=== PATIENT | male | born 1940 | race Caucasian/White ===

== ENCOUNTER 2019-02-21 11:44 | Observation (INO) | payer MEDICARE, OTHER ==
--- NOTE | 2019-02-21 12:15 | ED Physician Documentation ---
PD HPI CHEST PAIN - Stated complaint Stated Complaint: CHEST PX - Chief complaint Chief Complaint: Cardiac - History obtained from History obtained from: Patient - History of Present Illness Timing - onset: Last night (Chest ache starting last night about 8pm. Tried 2 ntg at home with brief relief. More pressure/stabbing today, mor achy last night. Mild dyspnea.) Location: Substernal Radiation: Other (none) - Additional information Additional information: Multiple stents, most recent Spring 2015. Review of Systems Ten Systems: 10 systems reviewed and negative Constitutional: reports: Reviewed and negative Cardiac: reports: Chest pain / pressure. denies: Palpitations, Pedal edema Respiratory: reports: Dyspnea. denies: Cough GI: denies: Abdominal Pain, Nausea, Vomiting PD PAST MEDICAL HISTORY - Past Medical History Cardiovascular: Hypertension, High cholesterol Respiratory: Shortness of breath GI: GERD HEENT: Chronic vision loss, Chronic hearing loss - Past Surgical History Past Surgical History: Yes General: Cholecystectomy, Bowel surgery, Hiatal hernia repair, Splenectomy Ortho: Rotator cuff repair, Arthroscopic surgery Cardiovascular: Pacemaker HEENT: Tracheostomy - Present Medications Home Medications: Ambulatory Orders Medication Instructions Recorded Confirmed Acyclovir [Zovirax] 200 mg PO DAILY 07/30/15 02/21/19 Alfuzosin HCl [Alfuzosin HCl ER] 10 mg DAILY 07/30/15 02/21/19 Carvedilol [Coreg] 6.25 mg PO BID 07/30/15 07/30/15 Clopidogrel [Plavix] 75 mg PO DAILY 07/30/15 02/21/19 Omeprazole [Prilosec] 20 mg PO BIDAC 07/30/15 02/21/19 RX: Atorvastatin [Lipitor] 10 mg PO Q2D@2100 07/30/15 02/21/19 Aspirin [Aspirin EC] 81 mg PO DAILY 07/31/15 02/21/19 Nitroglycerin [Nitrostat] 0.4 mg PO Q15M PRN 07/31/15 02/21/19 Nifedipine [Nifedipine ER] 60 mg PO QPM 02/21/19 02/21/19 - Allergies Allergies/Adverse Reactions: Allergies Allergy/AdvReac Type Severity Reaction Status Date / Time No Known Drug Allergies Allergy Verified 02/21/19 11:52 - Social History Does the pt smoke?: No Smoking Status: Former smoker Does the pt drink ETOH?: Yes Does the pt have substance abuse?: No - Family History Family history: reports: Non contributory - Immunizations Immunizations are current?: Yes - POLST Patient has POLST: No PD ED PE NORMAL - Vitals Vital signs reviewed: Yes - General General: Alert and oriented X 3, No acute distress - HEENT HEENT: PERRL, EOMI, Pharynx benign - Neck Neck: Supple, no meningeal sign, No bony TTP - Cardiac Cardiac: RRR, No murmur - Respiratory Respiratory: No respiratory distress, Clear bilaterally - Abdomen Abdomen: Normal bowel sounds, Soft, Non tender - Back Back: No CVA TTP, No spinal TTP - Derm Derm: Normal color, Warm and dry - Extremities Extremities: No calf tenderness / cord, Other (mild BLE edema, symmetric baseline per him.) - Neuro Neuro: Alert and oriented X 3, Normal speech Results - Vitals Vitals: Vital Signs - 24 hr 02/21/19 02/21/19 11:49 12:08 Temperature 36 C L Heart Rate 72 60 Respiratory 22 18 Rate Blood Pressure 190/69 H 159/53 H O2 Saturation 95 98 Oxygen O2 Source Room air - EKG (time done) 1150 Rate: Rate (enter#) (65) Rhythm: Paced (A-V dual paced.) - Labs Labs: Laboratory Tests 02/21/19 02/21/19 02/21/19 12:07 12:07 12:07 WBC 5.6 RBC 4.18 L Hgb 13.1 L Hct 39.0 L MCV 93.3 MCH 31.2 H MCHC 33.5 RDW 14.2 Plt Count 324 MPV 8.5 Neut # (Auto) 3.1 Lymph # (Auto) 1.0 L Dade # (Auto) 1.3 H Eos # (Auto) 0.1 Baso # (Auto) 0.1 Absolute Nucleated RBC 0.00 Nucleated RBC % 0.1 Sodium 137 Potassium 4.1 Chloride 105 Carbon Dioxide 23 Anion Gap 9.0 BUN 23 H Creatinine 1.1 Estimated GFR (MDRD) 64 L Glucose 211 H Calcium 9.0 Total Bilirubin 0.8 AST 24 ALT 22 Alkaline Phosphatase 54 Troponin I < 0.04 Total Protein 7.1 Albumin 4.0 Globulin 3.1 Albumin/Globulin Ratio 1.3 Lipase 34 PD MEDICAL DECISION MAKING - ED course ED course: 78-year-old gentleman with somewhat typical and somewhat atypical chest pain waxing and waning since last night with multiple risk factors for and known history of coronary disease. Initial biomarkers and EKG were reassuring but given his underlying high risk will be placed in observation. Spoke with Dr Silva for this. Departure - Departure Disposition: ED Place in Observation Clinical Impression: Chest pain Condition: Good Record reviewed to determine appropriate education?: Yes Discharge Date/Time: 02/21/19 13:44
[2019-02-21] MEDS ORDERED: ASPIRIN CHEW 81 MG TABLET PO STA (12:18)
[2019-02-21 12:19] LABS: BASOPHILS # (AUTO) 0.1 10^3/uL (0.0-0.1); BASOPHILS % (AUTO) 1.1 %; EOSINOPHILS # (AUTO) 0.1 10^3/uL (0.0-0.7); EOSINOPHILS % (AUTO) 1.2 %; HGB - HEMOGLOBIN 13.1 g/dL (14.0-18.0); LYMPHOCYTES % (AUTO) 18.4 %; MEAN CORPUSCULAR HEMOGLOBIN 31.2 pg (27.0-31.0); MEAN CORPUSCULAR HGB CONC 33.5 g/dL (32.0-36.0); MEAN CORPUSCULAR VOLUME 93.3 fL (80.0-94.0); MEAN PLATELET VOLUME 8.5 fL (7.4-11.4); MONOCYTES # (AUTO) 1.3 10^3/uL (0.0-1.0); NEUTROPHILS # (AUTO) 3.1 10^3/uL (1.5-6.6); NEUTROPHILS % (AUTO) 56.3 %; PLT - PLATELET COUNT 324 10^3/uL (130-450); RED BLOOD COUNT 4.18 10^6/uL (4.70-6.10); RED CELL DISTRIBUTION WIDTH 14.2 % (12.0-15.0); WHITE BLOOD COUNT 5.6 x10^3/uL (4.8-10.8)
[2019-02-21] MEDS ORDERED: NITROGLYCERIN 2% PASTE TOP STA (12:19)
[2019-02-21 12:30] LABS: ALBUMIN/GLOBULIN RATIO 1.3 (1.0-2.2); BILIRUBIN,TOTAL 0.8 mg/dL (0.2-1.0); CREATININE 1.1 mg/dL (0.6-1.2); TOTAL PROTEIN 7.1 g/dL (6.7-8.2)
--- NOTE | 2019-02-21 12:51 | XRAY Report ---
Reason: chest pain Procedure Date: 02/21/2019 Accession Number: [id number] / [id number] Procedure: XR - Chest 1 View X-Ray CPT Code: 76479 FULL RESULT: EXAM: CHEST RADIOGRAPHY EXAM DATE: 02/21/2019 12:42 PM. CLINICAL HISTORY: Chest pain. COMPARISON: CHEST 2 VIEW PA/LAT 07/30/2015 11:09 AM. TECHNIQUE: 1 view. FINDINGS: Lungs/Pleura: No focal opacities evident. No pleural effusion. No pneumothorax. Mediastinum: Borderline heart size. Mediastinal, hilar contours unremarkable. Other: Cardiac pacing device and leads appear grossly intact. IMPRESSION: No convincing acute cardiopulmonary abnormality. RADIA
[2019-02-21] MEDS ORDERED: oxyCODONE 5 MG TABLET PO PRN (12:55)
[2019-02-21] MEDS ORDERED: ONDANSETRON ODT 4 MG TABLET TL PRN (12:55)
[2019-02-21] MEDS ORDERED: ONDANSETRON 4 MG/2 ML VIAL IVP PRN (12:55)
[2019-02-21] MEDS ORDERED: ACETAMINOPHEN 325 MG TABLET PO PRN (12:55)
[2019-02-21] MEDS ORDERED: SODIUM CHLORIDE FLUSH 0.9% 10 ML SYRINGE IVP PRN (12:55)
[2019-02-21] MEDS ORDERED: NITROGLYCERIN SL 0.4 MG TABLET SL PRN (12:57)
[2019-02-21] MEDS ORDERED: PANTOPRAZOLE 40 MG TABLET PO SCH (13:00)
[2019-02-21] MEDS ORDERED: CLOPIDOGREL 75 MG TABLET PO SCH (13:00)
[2019-02-21] MEDS ORDERED: SODIUM CHLORIDE FLUSH 0.9% 10 ML SYRINGE IVP SCH (17:00)
--- NOTE | 2019-02-21 17:46 | HISTORY & PHYSICAL EXAMINATION ---
Chief Complaint - Chief Complaint Chief Complaint: atypical chest pain for >24 hours Chest Pain Admission HPI - Admitted From Admitted from: ED - History Obtained From Records Reviewed: RN notes reviewed, Other ([facility]) History obtained from: Patient Exam limitations: No limitations - History of Present Illness Pain/Problem Location Description: Pain is substernal, going up to right side of chest. A dull pressure-like Severity at the worst: reports: Mild Pain Quality: reports: Dull Context-Pain started w/: reports: Rest Timing: reports: Gradual onset, Constant Duration: reports: Days: (1) Improved with: reports: Other (mildly relieved by SL NTG in ER) Worsened by: reports: Nothing Associated symptoms: denies: Shortness of air, Diaphoresis, Nausea, Vomiting, Feeling faint / dizzy, General Weakness, Palpitations HPI Comment/Other: This gentleman has had multiple stents put in his coronary arteries. He is usual chest pain is that of a burning squeezing pain in the substernal area that goes to the back of his throat. This is resulted in a cardiology intervention with stents over 3 episodes. He thinks he has 5 stents overall. This time, the chest pain is lower in his chest, more to the right side. It is more dull and a pressure. No burning. There is no pain in his throat as he usually does. But he did start having a postnasal drip with a tickle in his throat and he did not know if he should be worried about it or not.He has a long history of concerns for low-grade throat pain, chest tightness and hoarseness for years. This ended up in a hiatal hernia repair. Was seen by ear nose and throat September 2011 for this. Negative EGD and pH probe in 2008. Known esophageal spasm. Had another repeat EGD in September 2011. Barium esophagram done as well. No demonstrated reflux on the esophagram with evidence of esophageal dysmotility that has delayed and decreased esophageal peristalsis. He presented with another episode of chest pain in April 2012. Stress test was positive. He underwent a coronary angiogram April 19, 2012. Drug-eluting stent placed in the "jailed" diagonal branch, was then "rescued" with a kissing balloon angioplasty. Continue to have more chest pain so a nuclear stress test was done and normal. More chest pain January 2013 with retrosternal chest pain radiating to the back of his throat and shortness of breath. Was hospitalized and underwent a percutaneous coronary intervention on February 18, 2013 and underwent a coronary angiogram. 60-70% stenosis of the distal left main/ostial LAD, 50% ostial stenosis of the jailed major diagonal branch, and 70% stenosis at the ostium of the inferior limb of the diagonal. Underwent drug-eluting stent of the distal left main, ostial circumflex, and ostial proximal LAD as well as mid LAD. Discharged home. Return 2 days later with repeat angiography which revealed patent stents. Underwent intervention of a 70% diagonal stenosis with balloon angioplasty at that time. PMH/PSH - Past Medical History Cardiovascular: positive: Hypertension (Renal arteries visualized for renal cell mass follow-up September 2014 and renal arteries are open), High cholesterol, Coronary artery disease (With history of [address] Rojas, [facility] cardiology in [place]), Peripheral Vascular Disease (Mild. ABIs on the right 1.15, on left 1.17 July 2007), Arrhythmia (With dual paced chamber pacer placed 2014) Respiratory: positive: Shortness of breath Neuro: positive: None Endocrine/Autoimmune: positive: None GI: positive: GERD, Other (Diarrhea with dehydration and hospitalization July 2014 after he went hunting and skinning a deer. Resulted in presyncope.) : positive: Benign prostate hypertrophy, Other (Fall while hunting and slipping on snow August 2014 resulting in left renal subcapsular hematoma.Found to have incidental right renal cyst at that time. 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 Small hiatus hernia present. Medeiros 48-hour pH done subsequent and had a completely normal 48-hour reflux study.), Other (Umbilical hernia repair) Ortho: positive: Rotator cuff repair, Arthroscopic surgery Cardiovascular: positive: Coronary stent (Including LAD), Pacemaker HEENT: positive: Tonsil/Adenoidectomy, Tracheostomy Social & Family Hx - Living Situation Living Arrangement: At home Living Situation: Alone, Other ( in October 2014) - Social History Does the pt smoke?: No Smoking Status: Former smoker (Quit in 1987) Does the pt drink ETOH?: Yes ETOH Use: Beer Does the pt have substance abuse?: No - POLST Patient has POLST: No POLST Status: Full Code - Family History Family History Comment/Other: Father in his 70s from an [place] Mother of lung cancer 3 sons and 1 daughter. Daughter has diabetes and is "not healthy" Meds/Allgy - Home Medications Home Medications: Ambulatory Orders Medication Instructions Recorded Confirmed Acyclovir [Zovirax] 200 mg PO DAILY 07/30/15 02/21/19 Alfuzosin HCl [Alfuzosin HCl ER] 10 mg DAILY 07/30/15 02/21/19 Atorvastatin [Lipitor] 10 mg PO Q2D@2100 07/30/15 02/21/19 Carvedilol [Coreg] 6.25 mg PO BID 07/30/15 07/30/15 Clopidogrel [Plavix] 75 mg PO DAILY 07/30/15 02/21/19 Omeprazole [Prilosec] 20 mg PO BIDAC 07/30/15 02/21/19 Aspirin [Aspirin EC] 81 mg PO DAILY 07/31/15 02/21/19 Nitroglycerin [Nitrostat] 0.4 mg PO Q15M PRN 07/31/15 02/21/19 Nifedipine [Nifedipine ER] 60 mg PO QPM 02/21/19 02/21/19 - Allergies Allergies/Adverse Reactions: Allergies Allergy/AdvReac Type Severity Reaction Status Date / Time No Known Drug Allergies Allergy Verified 02/21/19 11:52 Review of Systems - Constitutional Constitutional: denies: Fatigue, Fever, Chills, Malaise - Eyes Eyes: denies: Pain, Irritation, Amaurosis, Blurred vision, Field loss - Ears, Nose & Throat Ears, Nose & Throat: reports: Hearing loss, Hearing aids, Vertigo, Postnasal drainage, Sore throat. denies: Ear pain, Tinnitus, Nasal pain, Nasal discharge - Cardiovascular Cariovascular: denies: Irregular heart rate, Palpitations, Chest pain, Edema, Syncope, Exertional dyspnea, Decr. exercise tolerance - Respiratory Respiratory: denies: Cough, Sputum production, Wheezing, Snoring, SOB at rest - Gastrointestinal Gastrointestinal: denies: Abdominal pain, Abdominal distention, Constipation, Diarrhea, Change in bowel habits, Rectal bleeding - Genitourinary Genitourinary: reports: Incontinence, Nocturia. denies: Dysuria, Frequency, Urgency, Hematuria, Flank pain, Urethral discharge - Musculoskeletal Musculoskeletal: reports: Muscle pain, Back pain. denies: Muscle aches, Stiffness, Gout, Joint pain - Integumentary Integumentary: denies: Rash, Pruritis, Lesions, Dryness - Neurological Neurological: denies: General weakness, Focal weakness, Headache, Dizziness, Memory problems, Pre-existing deficit - Psychiatric Psychiatric: denies: Depression, Anxiety, Suicidal - Endocrine Endocrine: denies: Polyuria, Polydypsia, Polyphagia - Hematologic/Lymphatic Hematologic/Lymphatic: reports: Bruising. denies: Anemia, Petechiae Prior Level of Functionality: Independent with activities of daily living. Lives alone. Does his own bills, drives, gets help from his daughter to help clean the house. Does not use any durable medical Equipment. Exam - Vital Signs Reviewed Vital Signs: Yes Vital Signs: Vital Signs x48h Temp Pulse Pulse Resp BP BP Pulse Ox 02/21/19 16:00 36.4 C L 62 18 132/75 H 98 02/21/19 14:14 36.1 C L 55 L 18 157/72 H 97 02/21/19 13:42 36.8 C 63 16 156/80 H 96 02/21/19 12:08 60 18 159/53 H 98 02/21/19 11:49 36 C L 72 22 190/69 H 95 - Physical Exam General Appearance: positive: No acute distress, Alert, Other (Bilateral hearing aids in place, mildly deaf gentleman, alert very cheerful. This is in contrast to his daughter who looks pale, fatigued and is in tears with anxiety over her dad) Eyes Bilateral: positive: PERRL, EOMI ENT: positive: Pharynx nml Neck: positive: No JVD, Carotid bruit. negative: Stiff neck Respiratory: positive: Chest non-tender. negative: Wheezes, Rales, Rhonchi Cardiovascular: positive: Regular rate & rhythm, Bradycardia, Systolic murmur. negative: Gallop/S4, Friction rub Peripheral Pulses: positive: 1+ Abdomen: positive: Non-tender, No organomegaly, Nml bowel sounds, No distention Skin: positive: Warm, Dry Extremities: positive: Full ROM, No pedal edema. negative: Calf tenderness Neurologic/Psychiatric: positive: Oriented x3, CN's nml (2-12), Motor nml. negative: Facial droop, Slurred/abnml speech Results - Lab Results Fish Bones: 02/21/19 12:07 02/21/19 12:07 Other Lab Results: Lab Results x24hrs 02/21/19 02/21/19 02/21/19 Range/Units 12:07 12:07 12:07 WBC 5.6 (4.8-10.8) x10^3/uL RBC 4.18 L (4.70-6.10) 10^6/uL Hgb 13.1 L (14.0-18.0) g/dL Hct 39.0 L (42.0-52.0) % MCV 93.3 (80.0-94.0) fL MCH 31.2 H (27.0-31.0) pg MCHC 33.5 (32.0-36.0) g/dL RDW 14.2 (12.0-15.0) % Plt Count 324 (130-450) 10^3/uL MPV 8.5 (7.4-11.4) fL Neut # (Auto) 3.1 (1.5-6.6) 10^3/uL Lymph # (Auto) 1.0 L (1.5-3.5) 10^3/uL Colbert # (Auto) 1.3 H (0.0-1.0) 10^3/uL Eos # (Auto) 0.1 (0.0-0.7) 10^3/uL Baso # (Auto) 0.1 (0.0-0.1) 10^3/uL Absolute Nucleated RBC 0.00 x10^3/uL Nucleated RBC % 0.1 /100WBC Sodium 137 (135-145) mmol/L Potassium 4.1 (3.5-5.0) mmol/L Chloride 105 (101-111) mmol/L Carbon Dioxide 23 (21-32) mmol/L Anion Gap 9.0 (6-13) BUN 23 H (6-20) mg/dL Creatinine 1.1 (0.6-1.2) mg/dL Estimated GFR (MDRD) 64 L (>89) Glucose 211 H (70-100) mg/dL Calcium 9.0 (8.5-10.3) mg/dL Total Bilirubin 0.8 (0.2-1.0) mg/dL AST 24 (10-42) IU/L ALT 22 (10-60) IU/L Alkaline Phosphatase 54 (42-121) IU/L Troponin I < 0.04 (<0.49) ng/mL Total Protein 7.1 (6.7-8.2) g/dL Albumin 4.0 (3.2-5.5) g/dL Globulin 3.1 (2.1-4.2) g/dL Albumin/Globulin Ratio 1.3 (1.0-2.2) Lipase 34 (22-51) U/L - Diagnostic Imaging Results Diagnostic Imaging Results: positive: Final report reviewed Diagnostic Imaging Results Comments: No focal opacities. Cardiac pacing device and leads appear grossly intact. - EKG Results EKG Interpreted Independently: No EKG Comparison: positive: Unchanged from prior EKG EKG Findings: AV dual paced rhythm with some inhibition. No further analysis attempted. CP/CHF Plan - Echo Plan to order an echo?: No - Plan Patient Problems: All Active Problems Chest pain (Acute) Accelerating angina (Acute) Plan: With this gentleman has documented coronary artery disease with several interventions. His present presentation of chest pain is atypical for his usual presentation of angina. Nevertheless it did respond to subungual nitroglycerin. EKG is uninterpretable with regards to ischemia. First set of troponins is negative. Plan is to do serial troponins. Patient would like to be discharged tonight. I have spoken to his cardiology group. I have made the smoke eater on-call aware that the patient is being seen. He is amenable to serial troponins, sending the patient home, and they will see him in follow-up to do a stress test if needed. They would like to see him first before they do anything. His other problems of: hypertension, benign prostatic hypertrophy, gastroesophageal reflux disease appears stable at this time. I will reorder his usual home meds. Transfer Core Measures - Anticipated LOS I expect patient to be DC'd or transferred within 96 hours.: Yes - DVT/VTE - Prophylaxis VTE/DVT Device ordered at admit?: Yes
--- NOTE | 2019-02-21 19:09 | Discharge Plan ---
Discharge Plan Disposition: 01 Home, Self Care Condition: Good Diet: Cardiac Activity Restrictions: Activity as Tolerated Shower Restrictions: No Driving Restrictions: No Additional Instructions or Follow Up instructions: You were admitted for observation of chest pain. You have a very significant history of sterile coronary artery stents. You also have a history of reflux disease, hiatal hernia repair, chest burning resulting in EGD, Medeiros studies, etc. At this time we checked your heart muscle for enzyme leakage, call troponin. Your troponins have been negative. I have already spoken to your cardiology office. Dr. Rojas was not there today but his partner was. They know you have been here today and will be seeing you in the office in the next few days for a consultation. They will decide if you need a stress test or not. In the meantime you do not did not need to take any new medicines No Smoking: If you smoke, Please STOP! Call for help. Follow-up with: Michael Aguilar MD [Primary Care Provider] -
[2019-02-21] MEDS ORDERED: NIFEdipine ER 30 MG TABLET PO SCH (21:00)
[2019-02-21] MEDS ORDERED: TAMSULOSIN 0.4 MG CAPSULE PO SCH (21:00)
[2019-02-21] MEDS ORDERED: CARVEDILOL 6.25 MG PO SCH (21:00)
[2019-02-21 22:48] VITALS: BP 140/70
[2019-02-22] MEDS ORDERED: ASPIRIN EC 81 MG TABLET PO SCH (09:00)
[2019-02-22] MEDS ORDERED: POLYETHYLENE GLYCOL 3350 17 GM PACKET PO SCH (09:00)
[2019-02-22] MEDS ORDERED: ATORVASTATIN 10 MG TABLET PO SCH (21:00)
--- NOTE | 2019-03-07 05:07 | DISCHARGE SUMMARY ---
Physician: Robyn Silva MD DATE OF ADMISSION: 02/21/2019 DATE OF DISCHARGE: 02/21/2019 DISCHARGE DIAGNOSES 1. Atypical chest pain. 2. History of coronary artery disease. 3. Hypertension. 4. Benign prostatic hypertrophy. 5. Gastroesophageal reflux disease. DISCHARGE MEDICATIONS: No change. 1. Zovirax 200 mg daily. 2. Azulfidine extended release 10 mg daily. 3. Aspirin 81 mg daily. 4. Lipitor 10 mg every 2 days. 5. Plavix 75 mg daily. 6. Nifedipine extended release 60 mg daily. 7. Nitroglycerin 0.4 mg p.r.n. chest pain. 8. Prilosec 20 mg p.o. b.i.d. PRINCIPAL PROCEDURES: Serial cardiac enzymes that were all negative. HOSPITAL COURSE: Please refer to the detailed history and physical. He is an 78-year-old man who orellana s had several cardiac interventions with regard to stents. He also has atypical chest pain from post nasal drip, constant clearing of throat with sore throat, as well as gastroesophageal reflux disease. He has been worked up by ENT, as well as GI: He presents with another episode of chest pain. He d oes not want to stay overnight. Serial cardiac enzymes were negative. I have spoken to his cardiolo gy service, and they feel they can see the patient for followup in the office. They do not want to n ecessarily schedule a treadmill test yet. They will want to see him in the office first before they decide. As such, the patient was discharged in stable condition. Serial cardiac enzymes negative with negati ve EKG. PHYSICAL EXAMINATION: VITAL SIGNS: At discharge that evening, temperature was 36.6, pulse 60, blood pressure 140/70, respi rations 18, 97% on room air. GENERAL: Lanky talkative man who looks older than his stated age, without carotid bruits. HEART: I rregular rate and rhythm. ABDOMEN: A benign abdominal exam and no ataxia, edema, orthopnea. TD: 03/06/2019 20:36
== END 2019-02-21 22:56 | disposition home or self-care (01) ==
LOC: ED 11:44 → MS2 12:55
PROVIDERS: ADMIT Specialist; ATTEND Specialist
DX: R07.89 Other chest pain (principal); I25.10 Atherosclerotic heart disease of native coronary artery without angina pectoris; Z95.5 Presence of coronary angioplasty implant and graft; N40.0 Benign prostatic hyperplasia without lower urinary tract symptoms; K21.9 Gastro-esophageal reflux disease without esophagitis; Z95.0 Presence of cardiac pacemaker; Z87.891 Personal history of nicotine dependence; I73.9 Peripheral vascular disease, unspecified; R09.82 Postnasal drip; E78.00 Pure hypercholesterolemia, unspecified
CPT/HCPCS: 36415; 71045; 80053; 83690; 84484; 85025; 93005; 99284; A9270; G0378

== ENCOUNTER 2019-05-09 08:00 | Outpatient (CLI) | payer MEDICARE, OTHER ==
[2019-05-09 12:33] LABS: BASOPHILS % (AUTO) 0.6 %; EOSINOPHILS # (AUTO) 0.1 10^3/uL (0.0-0.7); HGB - HEMOGLOBIN 12.7 g/dL (14.0-18.0); LYMPHOCYTES # (AUTO) 1.3 10^3/uL (1.5-3.5); LYMPHOCYTES % (AUTO) 26.3 %; MEAN CORPUSCULAR HEMOGLOBIN 30.9 pg (27.0-31.0); MEAN CORPUSCULAR HGB CONC 31.9 g/dL (32.0-36.0); MEAN CORPUSCULAR VOLUME 96.8 fL (80.0-94.0); MEAN PLATELET VOLUME 10.9 fL (7.4-11.4); MONOCYTES # (AUTO) 1.1 10^3/uL (0.0-1.0); MONOCYTES % (AUTO) 22.4 %; NEUTROPHILS # (AUTO) 2.4 10^3/uL (1.5-6.6); NEUTROPHILS % (AUTO) 48.7 %; PLT - PLATELET COUNT 343 10^3/uL (130-450); RED BLOOD COUNT 4.11 10^6/uL (4.70-6.10); RED CELL DISTRIBUTION WIDTH 14.6 % (12.0-15.0)
[2019-05-09 13:16] LABS: ALBUMIN 3.7 g/dL (3.2-5.5); ALBUMIN/GLOBULIN RATIO 1.2 (1.0-2.2); ALKALINE PHOSPHATASE 55 IU/L (42-121); ALT ALANINE AMINOTRANSFERASE 19 IU/L (10-60); AST ASPARTATE AMINOTRANSFERASE 19 IU/L (10-42); BILIRUBIN,TOTAL 0.8 mg/dL (0.2-1.0); BUN - BLOOD UREA NITROGEN 20 mg/dL (6-20); CALCIUM 8.8 mg/dL (8.5-10.3); CARBON DIOXIDE - CO2 24 mmol/L (21-32); CHLORIDE 109 mmol/L (101-111); CHOL/HDL RATIO 3.4 (<5.0); CHOLESTEROL 186 mg/dL; CREATININE 1.1 mg/dL (0.6-1.2); GFR - MDRD 64 (>89); GLUCOSE 128 mg/dL (70-100); HDL CHOLESTEROL 54 mg/dL; LDL CHOLESTEROL,CALCULATED 121 mg/dL; LDL/HDL RATIO 2.2 (<3.6); SODIUM 140 mmol/L (135-145); TOTAL PROTEIN 6.8 g/dL (6.7-8.2); VLDL CHOLESTEROL 11 mg/dL
== END 2019-05-09 23:59 | disposition home or self-care (01) ==
LOC: LAB.WCP 08:00
PROVIDERS: ATTEND Family Medicine
DX: D64.9 Anemia, unspecified (principal); E78.5 Hyperlipidemia, unspecified; I10 Essential (primary) hypertension
CPT/HCPCS: 36415; 80053; 80061; 83721; 84443; 85025

== ENCOUNTER 2019-05-16 11:36 | Outpatient (CLI) | payer MEDICARE, OTHER ==
[2019-05-16 19:10] LABS: MAGNESIUM 2.3 mg/dL (1.7-2.8)
[2019-05-16 19:39] LABS: HB2 TOTAL 12.7 g/dL; HEMOGLOBIN A1C 0.52 g/dL; HEMOGLOBIN A1C % 5.9 % (4.6-6.2)
== END 2019-05-16 11:37 | disposition home or self-care (01) ==
LOC: LAB.WCP 11:36
PROVIDERS: ATTEND Family Medicine
DX: M60.9 Myositis, unspecified (principal); R73.9 Hyperglycemia, unspecified
CPT/HCPCS: 36415; 82550; 83036; 83735

== ENCOUNTER → 2019-08-04 | Outpatient (CLI) | payer MEDICARE, OTHER ==
[2019-08-04 13:02] LABS: BASOPHILS % (AUTO) 0.8 %; EOSINOPHILS # (AUTO) 0.1 10^3/uL (0.0-0.7); EOSINOPHILS % (AUTO) 1.8 %; LYMPHOCYTES # (AUTO) 1.3 10^3/uL (1.5-3.5); LYMPHOCYTES % (AUTO) 25.9 %; MEAN CORPUSCULAR HEMOGLOBIN 31.9 pg (27.0-31.0); MEAN CORPUSCULAR HGB CONC 31.9 g/dL (32.0-36.0); MEAN CORPUSCULAR VOLUME 99.8 fL (80.0-94.0); MEAN PLATELET VOLUME 11.3 fL (7.4-11.4); MONOCYTES # (AUTO) 1.1 10^3/uL (0.0-1.0); MONOCYTES % (AUTO) 21.8 %; NEUTROPHILS # (AUTO) 2.5 10^3/uL (1.5-6.6); NEUTROPHILS % (AUTO) 49.5 %; PLT - PLATELET COUNT 307 10^3/uL (130-450); RED BLOOD COUNT 4.08 10^6/uL (4.70-6.10); RED CELL DISTRIBUTION WIDTH 14.8 % (12.0-15.0); WHITE BLOOD COUNT 5.1 x10^3/uL (4.8-10.8)
[2019-08-04 13:04] LABS: CREATININE 1.1 mg/dL (0.6-1.2)
== END ==
LOC: LAB.WCP 07:58
PROVIDERS: ATTEND Internal Medicine Cardiovascular Disease
DX: I25.10 Atherosclerotic heart disease of native coronary artery without angina pectoris (principal); I48.0 Paroxysmal atrial fibrillation
CPT/HCPCS: 36415; 80048; 85025

== ENCOUNTER 2020-07-25 08:14 | Outpatient (CLI) | payer MEDICARE, OTHER ==
[2020-07-25 11:55] LABS: BASOPHILS % (AUTO) 0.9 %; EOSINOPHILS # (AUTO) 0.2 10^3/uL (0.0-0.7); EOSINOPHILS % (AUTO) 4.3 %; LYMPHOCYTES # (AUTO) 1.1 10^3/uL (1.5-3.5); LYMPHOCYTES % (AUTO) 25.1 %; MEAN CORPUSCULAR HEMOGLOBIN 31.9 pg (27.0-31.0); MEAN CORPUSCULAR HGB CONC 31.9 g/dL (32.0-36.0); MEAN PLATELET VOLUME 11.2 fL (7.4-11.4); MONOCYTES # (AUTO) 1.1 10^3/uL (0.0-1.0); MONOCYTES % (AUTO) 25.5 %; PLT - PLATELET COUNT 304 10^3/uL (130-450); RED BLOOD COUNT 4.08 10^6/uL (4.70-6.10); RED CELL DISTRIBUTION WIDTH 14.2 % (12.0-15.0); WHITE BLOOD COUNT 4.4 x10^3/uL (4.8-10.8)
[2020-07-25 12:19] LABS: ALBUMIN 3.7 g/dL (3.2-5.5); ALBUMIN/GLOBULIN RATIO 1.2 (1.0-2.2); ALKALINE PHOSPHATASE 57 IU/L (42-121); ALT ALANINE AMINOTRANSFERASE 20 IU/L (10-60); AST ASPARTATE AMINOTRANSFERASE 19 IU/L (10-42); BILIRUBIN,TOTAL 0.6 mg/dL (0.2-1.0); BUN - BLOOD UREA NITROGEN 14 mg/dL (6-20); CARBON DIOXIDE - CO2 30 mmol/L (21-32); CHLORIDE 108 mmol/L (101-111); CHOL/HDL RATIO 2.9 (<5.0); CHOLESTEROL 149 mg/dL; CREATININE 1.1 mg/dL (0.6-1.2); GLUCOSE 120 mg/dL (70-100); HDL CHOLESTEROL 52 mg/dL; LDL CHOLESTEROL,CALCULATED 85 mg/dL; LDL/HDL RATIO 1.6 (<3.6); SODIUM 142 mmol/L (135-145); TOTAL PROTEIN 6.7 g/dL (6.7-8.2); VLDL CHOLESTEROL 12 mg/dL
[2020-07-25 13:16] LABS: FREE T4 (FREE THYROXINE) 0.84 ng/dL (0.58-1.64)
== END 2020-07-25 23:59 | disposition home or self-care (01) ==
LOC: LAB.WCP 08:14
PROVIDERS: ATTEND Family Medicine
DX: I10 Essential (primary) hypertension (principal); E78.5 Hyperlipidemia, unspecified; I25.10 Atherosclerotic heart disease of native coronary artery without angina pectoris
CPT/HCPCS: 36415; 80053; 80061; 83721; 84439; 84443; 85025

== ENCOUNTER 2020-09-25 08:48 | Outpatient (CLI) | payer MEDICARE, OTHER | END 2020-09-25 08:49 | disposition home or self-care (01) | LOC: LAB.N 08:48 | PROVIDERS: ATTEND Nurse Practitioner | DX: I48.91 Unspecified atrial fibrillation (principal); Z79.899 Other long term (current) drug therapy | CPT/HCPCS: 36415; 84443 ==

== ENCOUNTER 2021-06-06 08:00 | Outpatient (CLI) | payer MEDICARE, OTHER ==
[2021-06-06 12:19] LABS: BASOPHILS % (AUTO) 0.6 %; EOSINOPHILS # (AUTO) 0.1 10^3/uL (0.0-0.7); EOSINOPHILS % (AUTO) 1.4 %; HCT - HEMATOCRIT 38.9 % (42.0-52.0); HGB - HEMOGLOBIN 12.3 g/dL (14.0-18.0); LYMPHOCYTES % (AUTO) 19.2 %; MEAN CORPUSCULAR HEMOGLOBIN 31.3 pg (27.0-31.0); MEAN CORPUSCULAR HGB CONC 31.6 g/dL (32.0-36.0); MEAN PLATELET VOLUME 11.3 fL (7.4-11.4); NEUTROPHILS # (AUTO) 2.9 10^3/uL (1.5-6.6); NEUTROPHILS % (AUTO) 58.6 %; PLT - PLATELET COUNT 309 10^3/uL (130-450); RED BLOOD COUNT 3.93 10^6/uL (4.70-6.10); RED CELL DISTRIBUTION WIDTH 14.2 % (12.0-15.0)
[2021-06-06 13:00] LABS: FERRITIN 307.3 ng/mL (23.9-336.2)
[2021-06-06 13:04] LABS: ESTIMATED AVERAGE GLUCOSE 128 mg/dL (70-100); HEMOGLOBIN A1c% 6.1 % (4.27-6.07)
[2021-06-06 13:42] LABS: ALT ALANINE AMINOTRANSFERASE 18 IU/L (10-60); AST ASPARTATE AMINOTRANSFERASE 21 IU/L (10-42); BUN - BLOOD UREA NITROGEN 20 mg/dL (6-20); CALCIUM 8.9 mg/dL (8.5-10.3); CARBON DIOXIDE - CO2 24 mmol/L (21-32); CHLORIDE 103 mmol/L (101-111); CREATININE 1.1 mg/dL (0.6-1.2); GFR - MDRD 64 (>89); GLUCOSE 161 mg/dL (70-100); POTASSIUM 4.5 mmol/L (3.5-5.0); SODIUM 136 mmol/L (135-145)
[2021-06-06 14:29] LABS: % IRON SATURATION 33 % (20-50); ALBUMIN 3.7 g/dL (3.2-5.5); ALBUMIN/GLOBULIN RATIO 1.2 (1.0-2.2); ALKALINE PHOSPHATASE 48 IU/L (42-121); BILIRUBIN,TOTAL 0.6 mg/dL (0.2-1.0); CHOLESTEROL 145 mg/dL; HDL CHOLESTEROL 48 mg/dL; IRON 82 ug/dL (45-182); LDL CHOLESTEROL,CALCULATED 83 mg/dL; LDL/HDL RATIO 1.7 (<3.6); TOTAL IRON BINDING CAPACITY 252 ug/dL (250-450); TOTAL PROTEIN 6.8 g/dL (6.7-8.2); TRANSFERRIN 180 mg/dL (180-329); TRIGLYCERIDES 71 mg/dL; VLDL CHOLESTEROL 14 mg/dL
== END 2021-06-06 23:59 | disposition home or self-care (01) ==
LOC: LAB.WCP 08:00
PROVIDERS: ATTEND Family Medicine
DX: D64.9 Anemia, unspecified (principal); E78.5 Hyperlipidemia, unspecified; R73.9 Hyperglycemia, unspecified; Z12.5 Encounter for screening for malignant neoplasm of prostate
CPT/HCPCS: 36415; 80053; 80061; 82607; 82728; 83036; 83540; 84466; 85025; G0103; 83721; 84153

== ENCOUNTER 2021-09-02 10:30 | Emergency (ER) | payer MEDICARE, OTHER ==
[2021-09-02 11:54] LABS: BASOPHILS % (AUTO) 0.3 %; EOSINOPHILS % (AUTO) 0.2 %; HCT - HEMATOCRIT 39.9 % (42.0-52.0); HGB - HEMOGLOBIN 13.1 g/dL (14.0-18.0); LYMPHOCYTES % (AUTO) 18.3 %; MEAN CORPUSCULAR HEMOGLOBIN 31.7 pg (27.0-31.0); MEAN CORPUSCULAR HGB CONC 32.8 g/dL (32.0-36.0); MEAN CORPUSCULAR VOLUME 96.6 fL (80.0-94.0); MEAN PLATELET VOLUME 9.9 fL (7.4-11.4); MONOCYTES % (AUTO) 28.8 %; NEUTROPHILS % (AUTO) 52.1 %; PLT - PLATELET COUNT 274 10^3/uL (130-450); RED BLOOD COUNT 4.13 10^6/uL (4.70-6.10); RED CELL DISTRIBUTION WIDTH 14.6 % (12.0-15.0); WHITE BLOOD COUNT 6.1 x10^3/uL (4.8-10.8)
[2021-09-02 12:03] LABS: ALBUMIN 3.6 g/dL (3.2-5.5); ALBUMIN/GLOBULIN RATIO 1.2 (1.0-2.2); BILIRUBIN,TOTAL 0.6 mg/dL (0.2-1.0); CALCIUM 8.4 mg/dL (8.5-10.3); CREATININE 1.3 mg/dL (0.6-1.2); POTASSIUM 4.3 mmol/L (3.5-5.0); TOTAL PROTEIN 6.7 g/dL (6.7-8.2)
[2021-09-02 12:09] LABS: RAPID STREP SCREEN Negative (Negative)
[2021-09-02 12:14] LABS: ABNORMAL LYMPHS % (MANUAL) 0 %; BAND NEUTROPHILS % (MANUAL) 0 %
[2021-09-02 12:24] LABS: DIFFERENTIAL COMMENT MANUAL DIFFERENTIAL; LYMPHOCYTES # (MANUAL) 0.7 10^3/uL (1.5-3.5); LYMPHOCYTES % (MANUAL) 12 %; MONOCYTES # (MANUAL) 1.7 10^3/uL (0.0-1.0); NEUTROPHILS # (MANUAL) 3.7 10^3/uL (1.5-6.6); PLATELET ESTIMATE, MANUAL NORMAL (130-450,000) (NORMAL); PLATELET MORPHOLOGY NORMAL APPEARANCE (NORMAL); RBC MORPHOLOGY (MULTIPLE) NORMAL APPEARANCE (NORMAL); WBC MORPHOLOGY (MULTIPLE) 1+ TOXIC GRANULATION (NORMAL)
--- NOTE | 2021-09-02 12:27 | XRAY Report ---
PROCEDURE: Chest 1 View X-Ray INDICATIONS: soa TECHNIQUE: One view of the chest was acquired. COMPARISON: 07/30/2015 and 02/21/2019 FINDINGS: Surgical changes and devices: Left chest wall cardiac pacer. Lungs and pleura: No pleural effusions or pneumothorax. Lungs are clear. Mediastinum: Mediastinal contours appear normal. Heart size is normal. Bones and chest wall: No suspicious bony lesions. Overlying soft tissues appear unremarkable. IMPRESSION: No acute cardiopulmonary disease process. Reviewed by: Kelly Delvalle MD, PhD on 09/02/2021 11:26 AM BAILEY Approved by: Kelly Delvalle MD, PhD on 09/02/2021 11:26 AM [employer]CHE[employer] Station ID: [id number]
[2021-09-02 13:02] LABS: B. PARAPERTUSSIS- RESP PCR PAN NOT DETECTED; B. PERTUSSIS- RESP PCR PANEL NOT DETECTED; C. PNEUMONIAE- RESP PCR PANEL NOT DETECTED; CORONAVIRUS 229E-RESP PCR NOT DETECTED; CORONAVIRUS HKU1-RESP PCR NOT DETECTED; CORONAVIRUS NL63-RESP PCR NOT DETECTED; CORONAVIRUS OC43-RESP PCR NOT DETECTED; HUMAN METAPNEUMOVIRUS NOT DETECTED; INFLUENZA A- RESP PCR PANEL NOT DETECTED; INFLUENZA B - RESP PCR PANEL NOT DETECTED; M. PNEUMONIAE- RESP PCR PANEL NOT DETECTED; PARAINFLUENZA VIRUS 1 NOT DETECTED; PARAINFLUENZA VIRUS 2 NOT DETECTED; PARAINFLUENZA VIRUS 3 NOT DETECTED; PARAINFLUENZA VIRUS 4 NOT DETECTED; RHINOVIRUS/ENTEROVIRUS NOT DETECTED; RSV- RESP PCR PANEL NOT DETECTED; SARS-CoV-2 -RESP PCR PANEL DETECTED
[2021-09-02] MEDS ORDERED: CASIRIVIMAB/IMDEVIMAB 10 ML in SODIUM CHLORIDE 0.9% 50 ML IV ONE (14:00)
--- NOTE | 2021-09-02 14:12 | ED Physician Documentation ---
PD HPI URI - Stated complaint Stated Complaint: LOC/FEVER/SOA - Chief complaint Chief Complaint: Neuro - History obtained from History obtained from: Patient - History of Present Illness Timing - onset: How many days ago (33) Timing duration: Days Timing details: Gradual onset, Still present Associated symptoms: Fever, Nasal congestion, Rhinorrhea, Sore throat, Dry cough, Dyspnea Contributing factors: Sick contact (daughter and son in law with cough) Improves by: Rest Worsened by: Activity Similar symptoms before: Has not had sx before Recently seen: Not recently seen - Additional information Additional information: Previously well 81-year-old male back from a month-long camping trip hunting in [facility] has developed a fever sore throat and cough and he passed out in the shower 2 days ago and was incontinent of stool at the time. He states that he has since recovered continues to have some symptoms of sore throat and lymph node swelling. He has been vaccinated against Covid had his last shot in December of this year. He does believe that his son-in-law and his daughter both coughing as well. Review of Systems Constitutional: reports: Fever, Chills, Myalgias, Fatigue, Sweats Eyes: denies: Decreased vision Ears: denies: Ear pain Nose: reports: Rhinorrhea / runny nose, Congestion Throat: reports: Sore throat Cardiac: denies: Chest pain / pressure, Palpitations Respiratory: reports: Dyspnea, Cough GI: denies: Vomiting : denies: Dysuria, Frequency PD PAST MEDICAL HISTORY - Past Medical History Past Medical History: Yes Cardiovascular: Hypertension, High cholesterol, Coronary artery disease, Periphe ral Vascular Disease, Arrhythmia Respiratory: Shortness of breath Neuro: None Endocrine/Autoimmune: None GI: GERD, Other : Benign prostate hypertrophy, Other HEENT: Chronic vision loss, Chronic hearing loss Psych: None Musculoskeletal: Osteoarthritis, Chronic back pain Derm: Psoriasis - Past Surgical History Past Surgical History: Yes General: Cholecystectomy, Bowel surgery, Hiatal hernia repair, Splenectomy, EGD, Other Ortho: Rotator cuff repair, Arthroscopic surgery Cardiovascular: Coronary stent, Pacemaker HEENT: Tonsil/Adenoidectomy, Tracheostomy - Present Medications Home Medications: Ambulatory Orders Medication Instructions Recorded Confirmed Acyclovir [Zovirax] 200 mg PO DAILY 07/30/15 09/02/21 Alfuzosin HCl [Alfuzosin HCl ER] 10 mg ORAL DAILY 07/30/15 09/02/21 Omeprazole [Prilosec] 20 mg PO BIDAC 07/30/15 09/02/21 Aspirin [Aspirin EC] 81 mg PO DAILY 07/31/15 09/02/21 Nitroglycerin [Nitrostat] 0.4 mg PO Q15M PRN 07/31/15 09/02/21 NIFEdipine [Nifedipine ER] 60 mg PO QPM 02/21/19 09/02/21 Apixaban [Eliquis] 5 mg ORAL BID 09/02/21 09/02/21 Azithromycin [Zithromax] 250 mg PO DAILY #6 tablet 09/02/21 Pravastatin [Pravachol] 20 mg PO DAILY PM 09/02/21 09/02/21 Sotalol [Betapace] 80 mg PO BID 09/02/21 09/02/21 dexAMETHasone [Decadron] 4 mg PO DAILY #5 tablet 09/02/21 - Allergies Allergies/Adverse Reactions: Allergies Allergy/AdvReac Type Severity Reaction Status Date / Time No Known Drug Allergies Allergy Verified 09/02/21 10:49 - Social History Does the pt smoke?: No Smoking Status: Former smoker Does the pt drink ETOH?: Yes Does the pt have substance abuse?: No - Immunizations Immunizations are current?: Yes - POLST Patient has POLST: No POLST Status: Full Code PD ED PE NORMAL - Vitals Vital signs reviewed: Yes (normal ) - General General: Alert and oriented X 3, No acute distress, Well developed/nourished - HEENT HEENT: Atraumatic, PERRL, EOMI, Ears normal, Other (mild erythema to the posterior pharynx) - Neck Neck: Supple, no meningeal sign, No bony TTP - Cardiac Cardiac: RRR, No murmur - Respiratory Respiratory: No respiratory distress, Clear bilaterally - Abdomen Abdomen: Normal bowel sounds, Soft, Non tender, Non distended, No organomegaly - Back Back: No CVA TTP, No spinal TTP - Derm Derm: Normal color, Warm and dry, No rash - Extremities Extremities: No deformity, No edema - Neuro Neuro: Alert and oriented X 3, automatic hemmer 2-12 intact, No motor deficit, No sensory deficit, Normal speech Eye Opening: Spontaneous Motor: Obeys Commands Verbal: Oriented GCS Score: 15 - Psych Psych: Normal mood, Normal affect Results - Vitals Vitals: Vital Signs - 24 hr 09/02/21 09/02/21 09/02/21 10:51 11:24 13:00 Temperature 37 C Heart Rate 65 60 68 Respiratory 24 17 18 Rate Blood Pressure 103/57 L 124/70 139/76 H O2 Saturation 96 96 98 Oxygen O2 Source Room air - Labs Labs: Laboratory Tests 09/02/21 09/02/21 09/02/21 11:35 11:35 11:35 WBC 6.1 RBC 4.13 L Hgb 13.1 L Hct 39.9 L MCV 96.6 H MCH 31.7 H MCHC 32.8 RDW 14.6 Plt Count 274 MPV 9.9 Neut # (Auto) Not Reportable Lymph # (Auto) Not Reportable Highlands # (Auto) Not Reportable Eos # (Auto) Not Reportable Baso # (Auto) Not Reportable Absolute Nucleated RBC Not Reportable Total Counted 100 Band Neuts % (Manual) 0 Abnorm Lymph % (Manual) 0 Nucleated RBC % Not Reportable Neutrophils # (Manual) 3.7 Lymphocytes # (Manual) 0.7 L Monocytes # (Manual) 1.7 H Eosinophils # (Manual) 0.0 Basophils # (Manual) 0.0 Differential Comment MANUAL DIFFERENTIAL WBC Morphology 1+ TOXIC GRANULATION Platelet Estimate NORMAL (130-450,000) Platelet Morphology NORMAL APPEARANCE RBC Morph Micro Appear NORMAL APPEARANCE Sodium 136 Potassium 4.3 Chloride 101 Carbon Dioxide 26 Anion Gap 9.0 BUN 13 Creatinine 1.3 H Estimated GFR (MDRD) 53 L Glucose 126 H Lactic Acid Calcium 8.4 L Total Bilirubin 0.6 AST 22 ALT 24 Alkaline Phosphatase 44 Total Protein 6.7 Albumin 3.6 Globulin 3.1 Albumin/Globulin Ratio 1.2 Lipase 38 Nasal Adenovirus (PCR) Nasal B. parapertussis DNA (PCR) Nasal Coronavir 229E PCR Nasal Coronavir HKU1 PCR Nasal Coronavir NL63 PCR Nasal Coronavir OC43 PCR Nasal Enterovir/Rhinovir PCR Nasal Influenza B PCR Nasal Influenza A PCR Nasal Parainfluen 1 PCR Nasal Parainfluen 2 PCR Nasal Parainfluen 3 PCR Nasal Parainfluen 4 PCR Nasal RSV (PCR) Nasal B.pertussis DNA PCR Nasal C.pneumoniae (PCR) Raheel Human Metapneumo PCR Nasal M.pneumoniae (PCR) Nasal SARS-CoV-2 (PCR) Group A Strep Rapid Negative 09/02/21 09/02/21 11:35 12:09 WBC RBC Hgb Hct MCV MCH MCHC RDW Plt Count MPV Neut # (Auto) Lymph # (Auto) Highlands # (Auto) Eos # (Auto) Baso # (Auto) Absolute Nucleated RBC Total Counted Band Neuts % (Manual) Abnorm Lymph % (Manual) Nucleated RBC % Neutrophils # (Manual) Lymphocytes # (Manual) Monocytes # (Manual) Eosinophils # (Manual) Basophils # (Manual) Differential Comment WBC Morphology Platelet Estimate Platelet Morphology RBC Morph Micro Appear Sodium Potassium Chloride Carbon Dioxide Anion Gap BUN Creatinine Estimated GFR (MDRD) Glucose Lactic Acid 0.4 L Calcium Total Bilirubin AST ALT Alkaline Phosphatase Total Protein Albumin Globulin Albumin/Globulin Ratio Lipase Nasal Adenovirus (PCR) NOT DETECTED Nasal B. parapertussis DNA (PCR) NOT DETECTED Nasal Coronavir 229E PCR NOT DETECTED Nasal Coronavir HKU1 PCR NOT DETECTED Nasal Coronavir NL63 PCR NOT DETECTED Nasal Coronavir OC43 PCR NOT DETECTED Nasal Enterovir/Rhinovir PCR NOT DETECTED Nasal Influenza B PCR NOT DETECTED Nasal Influenza A PCR NOT DETECTED Nasal Parainfluen 1 PCR NOT DETECTED Nasal Parainfluen 2 PCR NOT DETECTED Nasal Parainfluen 3 PCR NOT DETECTED Nasal Parainfluen 4 PCR NOT DETECTED Nasal RSV (PCR) NOT DETECTED Nasal B.pertussis DNA PCR NOT DETECTED Nasal C.pneumoniae (PCR) NOT DETECTED Raheel Human Metapneumo PCR NOT DETECTED Nasal M.pneumoniae (PCR) NOT DETECTED Nasal SARS-CoV-2 (PCR) DETECTED A Group A Strep Rapid - Rads (name of study) chest Radiology: Prelim report reviewed (Impression: No acute cardiopulmonary disease process.), EMP read indepedently, See rad report PD MEDICAL DECISION MAKING - ED course Complexity details: reviewed results, re-evaluated patient, considered differential, d/w patient ED course: 81-year-old male who is fully immunized against Covid has contacted Covid has developed a fever and a cough he does not have pneumonia on his chest x-ray he is not hypoxic he does not require admission in the hospital. He has had symptoms for 3 days and he is administered Regeneron intravenously. He is administered dexamethasone 10 mg and we will place him on a short course of dexamethasone 4 mg daily for 5 days and a azithromycin. Departure - Departure Disposition: 01 Home, Self Care Clinical Impression: COVID-19 Condition: Stable Instructions: COVID-19 [facility], Flu and Cold: Nutrition, Prevention and Treatment Tips Follow-Up: Alma You DO [Primary Care Provider] - Prescriptions: dexAMETHasone [Decadron] 4 mg PO DAILY #5 tablet Azithromycin [Zithromax] 250 mg PO DAILY #6 tablet Comments: Gerber today you tested positive for COVID-19. Your symptoms seem to be mostly confined to your upper respiratory tract. There was no evidence of pneumonia on your chest x-ray. You were given an infusion of antibody against covid in the ED today. The recommendation is to take the dexamethasone daily for the next 5 days and the a azithromycin as well. The azithromycin is to prevent infection with bacteria. Use the inhaler as needed. Our expectations are that you continue to improve and if you worsen despite these treatments return to the emergency department.
[2021-09-02 15:20] VITALS: BP 131/70
== END 2021-09-02 16:05 | disposition home or self-care (01) ==
LOC: ED 10:30
DX: U07.1 COVID-19 (principal); I10 Essential (primary) hypertension; Z95.0 Presence of cardiac pacemaker; Z95.5 Presence of coronary angioplasty implant and graft; Z79.01 Long term (current) use of anticoagulants; Z87.891 Personal history of nicotine dependence
CPT/HCPCS: 36415; 71045; 80053; 83605; 83690; 85025; 87040; 87070; 87430; 87631; 93005; 99283; 99284; M0243; Q0244; 0202U

== ENCOUNTER 2021-12-20 09:50 | Outpatient (CLI) | payer MEDICARE, OTHER ==
[2021-12-20 12:35] LABS: BASOPHILS % (AUTO) 0.8 %; EOSINOPHILS # (AUTO) 0.1 10^3/uL (0.0-0.7); EOSINOPHILS % (AUTO) 1.7 %; HCT - HEMATOCRIT 39.5 % (42.0-52.0); HGB - HEMOGLOBIN 12.9 g/dL (14.0-18.0); LYMPHOCYTES % (AUTO) 21.1 %; MEAN CORPUSCULAR HEMOGLOBIN 31.6 pg (27.0-31.0); MEAN CORPUSCULAR HGB CONC 32.7 g/dL (32.0-36.0); MEAN CORPUSCULAR VOLUME 96.8 fL (80.0-94.0); MEAN PLATELET VOLUME 11.2 fL (7.4-11.4); MONOCYTES % (AUTO) 20.2 %; NEUTROPHILS # (AUTO) 2.7 10^3/uL (1.5-6.6); PLT - PLATELET COUNT 310 10^3/uL (130-450); RED BLOOD COUNT 4.08 10^6/uL (4.70-6.10); RED CELL DISTRIBUTION WIDTH 14.5 % (12.0-15.0); WHITE BLOOD COUNT 4.8 x10^3/uL (4.8-10.8)
[2021-12-20 13:15] LABS: ALBUMIN 3.8 g/dL (3.2-5.5); ALBUMIN/GLOBULIN RATIO 1.1 (1.0-2.2); ALKALINE PHOSPHATASE 52 IU/L (42-121); ALT ALANINE AMINOTRANSFERASE 17 IU/L (10-60); AST ASPARTATE AMINOTRANSFERASE 21 IU/L (10-42); BILIRUBIN,TOTAL 0.6 mg/dL (0.2-1.0); BUN - BLOOD UREA NITROGEN 16 mg/dL (6-20); CALCIUM 9.2 mg/dL (8.5-10.3); CARBON DIOXIDE - CO2 27 mmol/L (21-32); CHLORIDE 106 mmol/L (101-111); CHOL/HDL RATIO 2.9 (<5.0); CHOLESTEROL 159 mg/dL; CREATININE 1.1 mg/dL (0.6-1.2); GFR - MDRD 64 (>89); GLUCOSE 121 mg/dL (70-100); HDL CHOLESTEROL 55 mg/dL; LDL CHOLESTEROL,CALCULATED 89 mg/dL; LDL/HDL RATIO 1.6 (<3.6); POTASSIUM 4.4 mmol/L (3.5-5.0); SODIUM 140 mmol/L (135-145); TOTAL PROTEIN 7.2 g/dL (6.7-8.2); TRIGLYCERIDES 74 mg/dL; VLDL CHOLESTEROL 15 mg/dL
[2021-12-20 13:20] LABS: CRP - C-REACTIVE PROTEIN < 1.0 mg/dL (0-1.0)
[2021-12-20 14:00] LABS: ESTIMATED AVERAGE GLUCOSE 120 mg/dL (70-100); HEMOGLOBIN A1c% 5.8 % (4.27-6.07)
== END 2021-12-20 09:51 | disposition home or self-care (01) ==
LOC: LAB.N 09:50
PROVIDERS: ATTEND Physician Assistant
DX: I10 Essential (primary) hypertension (principal); E78.5 Hyperlipidemia, unspecified; R73.9 Hyperglycemia, unspecified; I48.0 Paroxysmal atrial fibrillation; D64.9 Anemia, unspecified; R51.9 Headache, unspecified
CPT/HCPCS: 36415; 80053; 80061; 83036; 83721; 85025; 85651; 86140

== ENCOUNTER 2023-03-25 08:00 | Outpatient (CLI) | payer MEDICARE, OTHER ==
[2023-03-25 11:58] LABS: ALBUMIN 3.7 g/dL (3.2-5.5); ALBUMIN/GLOBULIN RATIO 1.2 (1.0-2.2); ALKALINE PHOSPHATASE 52 IU/L (42-121); ALT ALANINE AMINOTRANSFERASE 49 IU/L (10-60); AST ASPARTATE AMINOTRANSFERASE 33 IU/L (10-42); BILIRUBIN,TOTAL 0.5 mg/dL (0.2-1.0); BUN - BLOOD UREA NITROGEN 27 mg/dL (6-20); CALCIUM 8.9 mg/dL (8.5-10.3); CARBON DIOXIDE - CO2 27 mmol/L (21-32); CHLORIDE 108 mmol/L (101-111); CHOL/HDL RATIO 2.5 (<5.0); CHOLESTEROL 134 mg/dL; CREATININE 1.3 mg/dL (0.6-1.2); GFR - MDRD 53 (>89); GLUCOSE 130 mg/dL (70-100); HDL CHOLESTEROL 53 mg/dL; LDL CHOLESTEROL,CALCULATED 72 mg/dL; LDL/HDL RATIO 1.4 (<3.6); POTASSIUM 4.8 mmol/L (3.5-5.0); SODIUM 141 mmol/L (135-145); TOTAL PROTEIN 6.9 g/dL (6.7-8.2); TRIGLYCERIDES 47 mg/dL; VLDL CHOLESTEROL 9 mg/dL
[2023-03-25 12:06] LABS: BASOPHILS % (AUTO) 0.6 %; EOSINOPHILS # (AUTO) 0.2 10^3/uL (0.0-0.7); EOSINOPHILS % (AUTO) 2.5 %; HGB - HEMOGLOBIN 12.2 g/dL (14.0-18.0); LYMPHOCYTES # (AUTO) 1.2 10^3/uL (1.5-3.5); LYMPHOCYTES % (AUTO) 17.7 %; MEAN CORPUSCULAR HEMOGLOBIN 30.6 pg (27.0-31.0); MEAN CORPUSCULAR HGB CONC 31.3 g/dL (32.0-36.0); MEAN CORPUSCULAR VOLUME 97.7 fL (80.0-94.0); MEAN PLATELET VOLUME 10.8 fL (7.4-11.4); MONOCYTES # (AUTO) 1.4 10^3/uL (0.0-1.0); MONOCYTES % (AUTO) 21.3 %; NEUTROPHILS # (AUTO) 3.7 10^3/uL (1.5-6.6); NEUTROPHILS % (AUTO) 57.6 %; PLT - PLATELET COUNT 315 10^3/uL (130-450); RED BLOOD COUNT 3.99 10^6/uL (4.70-6.10); WHITE BLOOD COUNT 6.5 x10^3/uL (4.8-10.8)
== END 2023-03-25 23:59 | disposition home or self-care (01) ==
LOC: LAB.N 08:00
PROVIDERS: ATTEND Physician Assistant
DX: I10 Essential (primary) hypertension (principal); E78.5 Hyperlipidemia, unspecified
CPT/HCPCS: 36415; 80053; 80061; 83721; 85025

== ENCOUNTER 2023-04-01 08:00 | Outpatient (CLI) | payer MEDICARE, OTHER ==
[2023-04-01 13:50] LABS: INFLUENZA A- RESP PCR PANEL NOT DETECTED; INFLUENZA B - RESP PCR PANEL NOT DETECTED; RSV- RESP PCR PANEL NOT DETECTED; SARS-CoV-2 -RESP PCR PANEL NOT DETECTED
== END 2023-04-01 23:59 | disposition home or self-care (01) ==
LOC: LAB.WCP 08:00
PROVIDERS: ATTEND Physician Assistant
DX: R05.1 Acute cough (principal); Z20.822 Contact with and (suspected) exposure to COVID-19
CPT/HCPCS: 87637

== ENCOUNTER 2023-04-27 11:01 | Outpatient (CLI) | payer MEDICARE, OTHER ==
--- NOTE | 2023-04-27 14:07 | XRAY Report ---
PROCEDURE: Chest 2 View X-Ray INDICATIONS: DYSPNEA AT REST, WHEEZING. TECHNIQUE: 2 views of the chest were acquired. COMPARISON: X-ray chest, 09/02/2021. FINDINGS: Surgical changes and devices: There is a cardiac pacemaker in expected position. Lungs and pleura: No pleural effusions or pneumothorax. Lungs are clear. Mediastinum: Mediastinal contours appear normal. Heart size is normal. Bones and chest wall: No suspicious bony lesions. Overlying soft tissues appear unremarkable. IMPRESSION: No acute cardiopulmonary process. Reviewed by: Dasha Barber MD on 04/27/2023 2:06 PM PDT Approved by: Dasha Barber MD on 04/27/2023 2:06 PM PDT Station ID: [id number]
== END 2023-04-27 11:02 | disposition home or self-care (01) ==
LOC: DI.N 11:01
PROVIDERS: ATTEND Physician Assistant
DX: R06.00 Dyspnea, unspecified (principal); R06.2 Wheezing

== ENCOUNTER → 2024-07-07 | Outpatient (CLI) | payer MEDICARE, OTHER | END | disposition short-term general hospital (02) | LOC: EMS 10:57 | DX: R10.11 Right upper quadrant pain (principal); R10.31 Right lower quadrant pain; N50.89 Other specified disorders of the male genital organs; R07.81 Pleurodynia; M79.602 Pain in left arm; R42 Dizziness and giddiness; W18.39XA Other fall on same level, initial encounter; Y92.002 Bathroom of unspecified non-institutional (private) residence as the place of occurrence of the external cause; Z79.01 Long term (current) use of anticoagulants; Z95.0 Presence of cardiac pacemaker | CPT/HCPCS: A0425; A0427 ==

== ENCOUNTER 2024-07-17 08:58 | Outpatient (CLI) | payer MEDICARE, OTHER ==
[2024-07-17 09:41] LABS: ALBUMIN 3.8 g/dL (3.2-5.5); ALBUMIN/GLOBULIN RATIO 1.4 (1.0-2.2); ALKALINE PHOSPHATASE 53 IU/L (42-121); ALT ALANINE AMINOTRANSFERASE 16 IU/L (10-60); AST ASPARTATE AMINOTRANSFERASE 16 IU/L (10-42); BILIRUBIN,TOTAL 0.5 mg/dL (0.2-1.0); BUN - BLOOD UREA NITROGEN 24 mg/dL (6-20); CALCIUM 9.2 mg/dL (8.5-10.3); CARBON DIOXIDE - CO2 27 mmol/L (21-32); CHLORIDE 107 mmol/L (101-111); CHOL/HDL RATIO 2.8 (<5.0); CHOLESTEROL 106 mg/dL; CREATININE 1.3 mg/dL (0.6-1.3); GFR - MDRD 52 (>89); GLUCOSE 113 mg/dL (74-104); HDL CHOLESTEROL 38 mg/dL; LDL CHOLESTEROL,CALCULATED 45 mg/dL; LDL/HDL RATIO 1.2 (<3.6); POTASSIUM 4.7 mmol/L (3.5-4.5); SODIUM 139 mmol/L (135-145); TOTAL PROTEIN 6.5 g/dL (6.4-8.9); TRIGLYCERIDES 116 mg/dL; VLDL CHOLESTEROL 23 mg/dL
== END 2024-07-17 08:59 | disposition home or self-care (01) ==
LOC: LAB 08:58
PROVIDERS: ATTEND Physician Assistant
DX: I10 Essential (primary) hypertension (principal); E78.5 Hyperlipidemia, unspecified; N40.1 Benign prostatic hyperplasia with lower urinary tract symptoms
CPT/HCPCS: 36415; 80053; 80061; 83721; 84153